=== PATIENT | female | born 1985 | race Caucasian/White ===

== ENCOUNTER 2016-09-01 18:16 | Emergency (ER) | payer OTHER ==
[~2016-09-01] VITALS: Ht 160 cm; Wt 100.0 kg
[~2016-09-01 18:16] MED LIST: ANUCORT-HC25 MG RE; BACTRIM DS1 TAB PO; CELEXA20 MG PO; CIPROFLOXACN500 MG PO; DOXYCYCL HYC100 M3 PO; FIORICE1 PO; FLEXERIL PO; LORTAB 7.57.5 MG PO; LORTAB5 PO; MACRODANTIN100 MG PO; METRONIDAZOL250 MG PO; PRENATA4 PO; PRENATAL; PROAIR HFA IN; PYRIDIUM200 MG PO; TORADOL PO; ULTRAM50 M1 PO
[2016-09-01] MEDS ORDERED: MOTRIN800 MG PO (18:55)
[2016-09-01] MEDS ORDERED: PERCOCET 5/325M1 TAB PO (23:14)
[2016-09-02 00:02] VITALS: BP 115/71
== END 2016-09-01 23:30 | disposition home or self-care (01) | DRG 605 ==
LOC: ED 18:16
DX: S00.83XA Contusion of other part of head, initial encounter (principal); R51 Headache; S00.03XA Contusion of scalp, initial encounter; S00.531A Contusion of lip, initial encounter; Y04.2XXA Assault by strike against or bumped into by another person, initial encounter; Y92.009 Unspecified place in unspecified non-institutional (private) residence as the place of occurrence of the external cause

== ENCOUNTER 2016-12-16 17:41 | Emergency (ER) | payer OTHER ==
[~2016-12-16] VITALS: Ht 160 cm; Wt 100.0 kg
[~2016-12-16 17:41] MED LIST changes: +MOTRIN800 MG PO; +PERCOCET 5/325M1 TAB PO
[2016-12-16 17:58] LABS: URINE BILIRUBIN - DIPSTICK NEGATIVE (NEGATIVE); URINE BLOOD DIPSTICK LARGE (NEGATIVE); URINE CLARITY CLEAR; URINE COLOR YELLOW; URINE GLUCOSE - DIPSTICK NEGATIVE (NEGATIVE); URINE KETONE NEGATIVE (NEGATIVE); URINE LEUK ESTERASE NEGATIVE (NEGATIVE); URINE NITRITE - DIPSTICK NEGATIVE (Negative); URINE PROTEIN - DIPSTICK NEGATIVE (NEG-TRACE); URINE SPECIFIC GRAVITY 1.025; URINE UROBILINOGEN - DIPSTICK 0.2 E.U./dL (0.2)
[2016-12-16 18:18] LABS: URINE SQUAMOUS EPITHELIAL CELL FEW EPI/hpf (0-FEW); URINE WBC 0-2 WBC/hpf (0-5)
[2016-12-16 18:24] LABS: HEMATOCRIT 37.4 % (37.0-47.0); HEMOGLOBIN 11.9 g/dl (12.0-16.0); IMMATURE GRANULOCYTES 0.7 % (0.0-1.0); MEAN CELL VOLUME 80.3 fL CALC (80.0-100.0); MEAN CORPUSCULAR HGB 25.5 pG CALC (26.0-32.0); MEAN CORPUSCULAR HGB CONC 31.8 g/L CALC (32.0-36.0); NEUT# 8.85 thou/uL (2.00-7.15); RED BLOOD COUNT 4.66 mill/uL (4.20-5.60); RED CELL DISTRI WIDTH 14.7 % (11.5-15.5)
[2016-12-16 18:41] LABS: ALBUMIN 4.5 g/dL (3.2-5.0); ALKALINE PHOSPHATASE 101 u/l (38-126); ANION GAP 17 (6-22 (CALC)); BILIRUBIN, TOTAL 0.3 mg/dL (0.0-1.4); BUN 11 mg/dL (7-17); BUN/CREATININE RATIO 13 (12-20 (CALC)); CALCIUM 9.3 mg/dL (8.4-10.2); CARBON DIOXIDE 23 mmol/l (22-30); CHLORIDE 106 mmol/l (95-108); CREATININE 0.8 mg/dL (0.5-1.0); GFR > 60 ML/MIN (>=60 (CALC)); GFR FOR AFR.AMER. > 60 ML/MIN (>=60 (CALC)); GLUCOSE 90 mg/dL (65-105); LIPASE 90 u/l (23-300); SGOT/AST 20 u/l (14-36); SGPT/ALT 28 u/l (9-52); SODIUM 143 mmol/l (137-146); TOTAL PROTEIN 8.1 g/dL (6.3-8.2)
[2016-12-16] MEDS ORDERED: PYRIDIUM200 MG PO (19:39)
[2016-12-16] MEDS ORDERED: MACROBID100 MG PO (19:39)
[2016-12-16 19:47] VITALS: BP 120/74
== END 2016-12-16 19:49 | disposition home or self-care (01) | DRG 696 ==
LOC: ED 17:41
PROVIDERS: Family Medicine
DX: R31.9 Hematuria, unspecified (principal); R30.0 Dysuria; R10.32 Left lower quadrant pain; R35.0 Frequency of micturition

== ENCOUNTER 2016-12-24 02:16 | Emergency (ER) | payer MEDICAID ==
[~2016-12-24] VITALS: Ht 160 cm; Wt 90.0 kg
[~2016-12-24 02:16] MED LIST changes: +MACROBID100 MG PO
[2016-12-24] MEDS ORDERED: PROAIR HFA108 MCG/AC IN (02:39)
[2016-12-24] MEDS ORDERED: TRAMADOL HYDROC50 MG PO (03:02)
[2016-12-24] MEDS ORDERED: MOTRIN800 MG PO (03:02)
[2016-12-24 03:30] VITALS: BP 120/65
== END 2016-12-24 03:30 | disposition home or self-care (01) | DRG 563 ==
LOC: ED 02:16
PROC: 2W3RX1Z Immobilization of Left Lower Leg using Splint (ICD-10-PCS; principal; 2016-12-24)
DX: S82.402A Unspecified fracture of shaft of left fibula, initial encounter for closed fracture (principal); M25.472 Effusion, left ankle; W10.8XXA Fall (on) (from) other stairs and steps, initial encounter; X50.1XXA Overexertion from prolonged static or awkward postures, initial encounter; Y92.009 Unspecified place in unspecified non-institutional (private) residence as the place of occurrence of the external cause